=== PATIENT | female | born 1945 | race Two or more races ===

== ENCOUNTER 2023-07-24 06:55 | Day surgery (SDC) | payer OTHER ==
[2023-07-24] MEDS ORDERED: POVIDONE-IODINE 118 ML BOTT TOP ONE ×2 (12:27→13:30)
[2023-07-24] MEDS ORDERED: DIBUCAINE 30 GM TUBE ONE (12:27)
[2023-07-24] MEDS ORDERED: HEMOSTATIC MATRIX 1 KIT KIT TOP ONE ×2 (12:27→13:30)
[2023-07-24] MEDS ORDERED: METRONIDAZOLE/SODIUM CHLORIDE 500 MG/100 ML PIGGYBACK IV ONE ×2 (12:40→13:30)
[2023-07-24] MEDS ORDERED: CEFTRIAXONE SODIUM 2,000 MG VIAL ONE (12:40)
[2023-07-24] MEDS ORDERED: DIBUCAINE 30 GM TUBE RECTAL ONE (13:30)
[2023-07-24] MEDS ORDERED: CEFTRIAXONE SODIUM 2,000 MG VIAL IV ONE (13:30)
== END 2023-07-24 20:10 | disposition home or self-care (01) ==
LOC: CIR.AMB 06:55
PROVIDERS: ATTEND Colon & Rectal Surgery
DX: K60.3 Anal fistula (principal); D12.9 Benign neoplasm of anus and anal canal; Z88.6 Allergy status to analgesic agent